=== PATIENT | female | born 1985 | race Caucasian/White ===

== ENCOUNTER 2022-11-21 15:40 | Outpatient (CLI) | payer BC, SELFPAY | END 2022-11-21 15:41 | disposition home or self-care (01) | LOC: NFLDREF 11-22 09:39 | PROVIDERS: PCP Family Medicine; Referring Provider Family Medicine; Visit Provider Family Medicine | DX: E03.9 Hypothyroidism, unspecified (principal); F41.1 Generalized anxiety disorder; F33.42 Major depressive disorder, recurrent, in full remission | CPT/HCPCS: 84439; 84443 ==

== ENCOUNTER 2023-03-27 11:39 | Outpatient (CLI) | payer BC, SELFPAY | END 2023-03-27 11:40 | disposition home or self-care (01) | LOC: NFLDREF 04-03 11:40 | PROVIDERS: PCP Family Medicine; Referring Provider Family Medicine; Visit Provider Family Medicine | DX: E03.9 Hypothyroidism, unspecified (principal) | CPT/HCPCS: 84439; 84443 ==

== ENCOUNTER 2023-11-10 10:40 | Outpatient (CLI) | payer BC, SELFPAY ==
--- OUTSIDE RECORDS SUMMARY | 2023-11-13 06:08 | XMS_ITS | Clinical Summary ---
Author Organization [facility] Address [place], [place] [address] Care Team Providers Care Head Start Assistant Teacher Name Role Phone Reta Pickett Primary Care Provider Allergies No known active allergies Medications Medication Sig Dispensed Refills Start Date End Date Status Butalbital-Acetaminop hen-Caff (FIORICET) 50-300-40 mg capIndications:Other migraine with status migrainosus, not intractable Take by mouth 3 times daily if needed. 30 capsule 2 05/15/2020 Active ALPRAZolam (XANAX) 0.5 mg tabletIndications:Anx iety Take 1 tablet by mouth 2 times daily if needed. 30 tablet 05/15/2020 Active sertraline (ZOLOFT) 100 mg tabletIndications:Anx iety,Depression, major, single episode, moderate (HC) Take 1 tablet by mouth once daily. 90 tablet 4 05/15/2020 Active Active Problems No known active problems Family History Medical History Relation Name Comments Hyperlipidemia Father Hypertension Father Arthritis Mother Hypertension Mother Relation Name Status Comments Father Mother Social History Tobacco Use Types Packs/Day Years Used Date Smoking Tobacco: Never Smokeless Tobacco: Never Tobacco Cessation:Counseling Given: Yes Alcohol Use Standard Drinks/Week Comments Yes 0 (1 standard drink = 0.6 oz pur e alcohol) PHQ-2 Answer Date Recorded PHQ-2 TOTAL SCORE 3 05/15/2020 Social Connections Answer Date Recorded Frequency of Communication with Friends and Fami ly Not on file 05/11/2021 Financial Resource Strain Answer Date R ecorded Difficulty of Paying Living Expenses Not on file 05/11/2021 Difficulty of Paying Living Expenses Not on file 05/11/2021 Sex and Gender Information Value Date Recorded Sex Assigned at Not on file Gender Identity Not on file Sexual Orientation Not on file Obstetrics History Last Filed Vital Signs Vital Sign Reading Time Taken Comments Blood Pressure 106/74 01/24/2020 1:56 PM CDT Pulse 65 01/24/2020 1:56 PM CDT Temperature 37.1 ??C (98.7 ??F) 01/24/2020 1:56 PM CD T Respiratory Rate - - Oxygen Saturation 99% 01/24/2020 1:56 PM CDT Inhaled Oxygen Concentration - - Weight 90.7 kg (200 lb) 01/24/2020 1:56 PM CDT Height - - Body Mass Index - - Plan of Treatment Health Maintenance Due Date Last Done Comments Tdap 1998 HIV for age 15-65 2002 BMI (ht and wt on same day) for age 18+ 2005 Hepatitis C screening for ag e 18-79 2005 Tetanus booster 2007 Depression screening for age 12+ 05/15/2021 05/15/2020, 05/15/2020 COVID-19 vaccine series ( - 2022-24 season) 2023 Pap test for age 21-65 09/19/2023 , 09/18/2020 Influenza for age 9-49 01/10/2024 Pneumococcal series for age 6-64 Aged Out No longer eligible b ased on patient's age to complete this topic Procedures Procedure Name Priority Date/Time Associated Diagnosis Comments LINER CHECKER THIN PREP PAP SCREEN IMAGED Routine 09/18/2020 1:45 PM CDT from Last 3 Months or Most Recently Relevant to Health Maintenance Results * LINER CHECKER THIN PREP PAP SCREEN IMAGED (09/18/2020 1:45 PM CDT) Case Report Gynecologic Cytology Report ? Case: [id number] ? Authorizing Provider: ??Ana Marcos PA-C ?Collected: ? 09/18/2020 1345 ? Ordering Location: ? [facility] ?Received: ?09/20/2020 1029 ? First Screen: ?Deneen Escobar ? Specimen: ?LINER CHECKER ThinPrep Vial Screening, Cervical/Vaginal ? 10/01/2020 12:47 PM CDT [facility] INTERPRETATION/ RESULT NEGATIVE FOR INTRAEPITHELIAL LESION OR MALIGNANCY (NIL) (none) 10/01/2020 12:47 PM T [facility] IMEN ADEQUACY Satisfactory for evaluation No endocervical component seen in a patient 10/01/2020 12:47 PM CDT [facility] HPV REQUEST HPV and PAP 10/01/2020 12:47 PM CDT [facility] Menstrual Status 10/01/2020 12:47 PM CDT [facility] Additional Information 10/01/2020 12:47 PM T [facility] Comment: Interpreted at [facility], Central Laboratory - [address], [place] [address] Automated Review Successful 10/01/2020 12:47 PM CDT [facility] Comment:Specimen processed s uccessfully by automated front tender device, ThinPrep Imaging System, [employer] ANCILLARY TESTING LINER CHECKER HPV Ordered, Please see separate report 10/01/2020 12:47 PM CDT [facility] Note The pap test is a screening technique, not a diagnostic procedure. It is used primarily to screen for squamous cancers and precursor lesions. Published studies have shown that it is subject to both false negative and false positive results. The pap test should not be used as the sole means to diagnose or exclude pre-malignant and malignant lesions. 10/01/2020 12:47 PM CDT [facility] Other (Cervical/Vagina l) 09/18/2020 1:45 PM CDT 09/20/2020 10:29 AM CDT August Priti [facility] PATHOLOG[facility] [address] [place] [address], from Last 3 Months or Most Recently Relevant to Health Maintenance Care Teams Head Start Assistant Teacher Relationship Specialty Start Date End Date Reta Pickett PA [address] [place] [address] PCP - General Physician Missile Control Pilot 01/27/20
== END 2023-11-10 10:41 | disposition home or self-care (01) ==
LOC: NFLDREF 11-13 06:07
PROVIDERS: PCP Family Medicine; Referring Provider Family Medicine; Visit Provider Family Medicine
DX: E03.9 Hypothyroidism, unspecified (principal)
CPT/HCPCS: 84439; 84443

== ENCOUNTER 2024-02-16 13:10 | Outpatient (CLI) | payer BC, SELFPAY ==
--- OUTSIDE RECORDS SUMMARY | 2024-02-19 11:35 | XMS_ITS | Clinical Summary ---
Author Organization [facility] Address [place], [place] [address] Care Team Providers Care Refuse Driver Name Role Phone Reta Pickett Primary Care [...] screening for age 12+ 05/15/2021 05/15/2020, 05/15/2020 Pap test for age 21-65 09/19/2023 , 09/18/2020 COVID-19 vaccine series ( season) 2024 Influenza for age 9-49 01/10/2024 Pneumococcal series for age 6-64 Aged Out No longer eligible b ased on patient's age to complete this topic Procedures Procedure Name Priority Date/Time Associated Diagnosis Comments RESIDENTIAL YOUTH COUNSELOR THIN PREP PAP SCREEN IMAGED Routine 09/18/2020 1:45 PM CDT from Last 3 Months or Most Recently Relevant to Health Maintenance Results * RESIDENTIAL YOUTH COUNSELOR THIN PREP PAP SCREEN IMAGED (09/18/2020 1:45 PM CDT) Case Report Gynecologic Cytology Report ? Case: [id number] ? Authorizing Provider: ??Ana Marcos PA-C ?Collected: ? 09/18/2020 1345 ? Ordering Location: ? [facility] ?Received: ?09/20/2020 1029 ? First Screen: ?Deneen Escobar ? Specimen: ?RESIDENTIAL YOUTH COUNSELOR ThinPrep Vial Screening, Cervical/Vaginal ? 10/01/2020 12:47 PM CDT [facility] INTERPRETATION/ RESULT NEGATIVE FOR INTRAEPITHELIAL LESION OR MALIGNANCY (NIL) (none) 10/01/2020 12:47 PM T [facility] IMEN ADEQUACY Satisfactory for evaluation No endocervical component seen in a patient 10/01/2020 12:47 PM CDT [facility] HPV REQUEST HPV and PAP 10/01/2020 12:47 PM CDT [facility] Menstrual Status 10/01/2020 12:47 PM CDT [facility] Additional Information 10/01/2020 12:47 PM T [facility] Comment: Interpreted at [facility] Laboratory - [address], [place] [address] Automated Review Successful 10/01/2020 12:47 PM CDT [facility] Comment:Specimen processed s uccessfully by automated broadcast systems engineer device, ThinPrep Imaging System, [employer] ANCILLARY TESTING RESIDENTIAL YOUTH COUNSELOR HPV Ordered, Please see separate report 10/01/2020 [...] and malignant lesions. 10/01/2020 12:47 PM CDT [facility]-C ENTRAL LABORATORY Other (Cervical/Vagina l) 09/18/2020 1:45 PM CDT 09/20/2020 10:29 AM CDT August Priti [facility] [address] [place] [address], from Last 3 Months or Most Recently Relevant to Health Maintenance Care Teams Refuse Driver Relationship Specialty Start Date End Date Reta Pickett PA [address] [place] [address] PCP - General Physician Engraver Optical Frames 01/27/20
== END 2024-02-16 13:11 | disposition home or self-care (01) ==
LOC: NFLDREF 02-19 11:19
PROVIDERS: PCP Family Medicine; Referring Provider Family Medicine; Visit Provider Family Medicine
DX: E03.9 Hypothyroidism, unspecified (principal)
CPT/HCPCS: 84443

== ENCOUNTER 2025-01-31 13:45 | Outpatient (RCR) | payer OTHER, SELFPAY | END 2025-03-13 16:43 | disposition home or self-care (01) | PROVIDERS: PCP Family Medicine; Visit Provider Family Medicine | DX: M54.2 Cervicalgia (principal); M54.12 Radiculopathy, cervical region; Z51.89 Encounter for other specified aftercare | CPT/HCPCS: 97110; 97140; 97162 ==

== ENCOUNTER 2025-02-03 14:42 | Outpatient (CLI) | payer BC, SELFPAY | END 2025-02-03 14:43 | disposition home or self-care (01) | LOC: NFLDREF 02-06 09:24 | PROVIDERS: PCP Family Medicine; Referring Provider Family Medicine; Visit Provider Internal Medicine | DX: E78.5 Hyperlipidemia, unspecified (principal); E03.9 Hypothyroidism, unspecified; R53.83 Other fatigue; R73.09 Other abnormal glucose | CPT/HCPCS: 80053; 80061; 84439; 84443 ==

== ENCOUNTER 2025-03-29 07:55 | Day surgery (SDC) | payer BC, SELFPAY ==
[2025-03-29] VITALS (15 sets, daily range): BP systolic 108–134; BP diastolic 62–89; PULSE 68–85; RESP 16–20; TEMP 36.1–37.1; O2SAT 92–98; BMI 38.2
[2025-03-29 08:12] LABS: Ur HCG Qualitative* Negative (Negative)
[2025-03-29] MEDS: SODIUM CHLORIDE 0.9 % (FLUSH) 10 ML SYRINGE IVF (08:25)
[2025-03-29] MEDS: LACTATED RINGERS 1000 ML 1,000 ML 100 ML IV ×2 (08:25→12:00)
[2025-03-29 08:32] LABS: Hemoglobin* 14.3 gm/dL (12.0-16.0)
--- NOTE | 2025-03-29 08:34 | W.PM.H&PU ---
History & Physical Update History & Physical Update H&P Reviewed and patient assessed: No changes noted
--- NOTE | 2025-03-29 09:28 | P.ANES_ITS ---
Anesthesia Charges Start Date/Time Anesthesia Start Date: 03/29/25 Anesthesia Start Time: 09:05 Stop Date/Time Anesthesia Stop Date: 03/29/25 Anesthesia Stop Time: 10:52 Coding CPT Codes CPT Codes: ANESTH SURG LOWER ABDOMEN - 61279 ([id number]) P2 - PATIENT W/MILD SYST DISEASE, QK - COMPOSER TEACHING ARTIST 2-4 CNCRNT ANES PROC, QX - SULFATE DRIER MACHINE OPERATOR SVC W/ MD MED DIRECTION
--- NOTE | 2025-03-29 09:28 | W.ANESCHARGE ---
Anesthesia Charges Start Date/Time Anesthesia Start Date: 03/29/25 Anesthesia Start Time: 09:05 Stop Date/Time Anesthesia Stop Date: 03/29/25 Anesthesia Stop Time: 10:52 Coding CPT Codes CPT Codes: ANESTH SURG LOWER ABDOMEN - 50634 ([id number]) P2 - PATIENT W/MILD SYST DISEASE, QK - STEAM TENDER 2-4 CNCRNT ANES PROC, QX - FIRE BOAT ENGINEER SVC W/ MD MED DIRECTION
[2025-03-29] MEDS: BUPIVACAINE 0.5% 30 ML INJECTION (10:24)
[2025-03-29] MEDS: LIDOCAINE 1 % PF 30 ML INJECTION (10:24)
--- NOTE | 2025-03-29 10:33 | SUR.OPER ---
DEFICIT = 110ML
--- NOTE | 2025-03-29 10:36 | P.GYNPRC_ITS ---
Procedure Note Date of procedure: 03/29/25 Will [facility] bill your pro fee for this procedure?: Yes Pre-op diagnosis: Family Planning History of heavy bleeding with menses, IUD expulsion twice Post-op diagnosis: Same Suspected endometriosis Procedure: Laparoscopic bilateral salpingectomy, excision and fulguration of suspected endometriosis implants, Mirena IUD removal, hysteroscopy and D&C, endometrial ablation Anesthesia: GETA Complications: None Surgeon: Irwin Patel MD Estimated blood loss (mL): 10 IV fluids (mL): 900 Urine Output (mL): 400 Pathology: specimen obtained, sent to pathology (1. Bilateral fallopian tubes 2. Right uterosacral ligament biopsy 3. endometrial curettings) Condition: stable Disposition: same day Findings: Findings: Speculum exam: Cervix without any abnormal discharge or lesions, IUD strings easily visualized. Uterine sound 8cm. Cervical length 3.5cm. Evidence of perianal skin tag, external hemorrhoids. Intra-abdominal survey: No gross abnormalities, uterus midline of about 8 cm, grossly normal left fallopian tube, right fallopian tube with a small paratubal cyst at fimbrial end. Bilateral ovaries with small simple ovarian cystic structures, largest 1cm, none suspicious for endometriomas. Right uterosacral ligament there is a powder gun lesion typical of endometriosis, clear vesicles on the right pelvic side wall peritoneum, powder gun lesion on the left uterosacral ligament as well as in the posterior cul de sac.Thin adhesions of the sigmoid epiploica to the left pelvic side wall. Intrauterine: grossly normal, thin endometrium. Bilateral cornual openings seen. Procedure Description: Patient was taken to the OR with IV fluid running and pneumatic compression stockings applied to the lower extremities. General anesthesia was obtained without difficulty. The patient was placed in the dorsal lithotomy position with Killian type stirrups with knee bent at 30 degree angles. Patient was prepared and draped under usual sterile technique. The bladder was emptied and Zamarripa catheter placed. Speculum was placed in the vagina. IUD strings were grasped with ring forceps and with gentle traction device was completely removed from uterus. The anterior lip of the cervix was grasped with a single-tooth tenaculum. Uterine manipulator was introduced. I then changed my gloves and attention was placed to the abdomen. Two Allis clamps were applied to the periumbilical skin for manual elevation of the abdomen. A vertical skin incision was made in the inferior umbilical fold. A 5 mm Optiview trocar was introduced into the peritoneal cavity without difficulty. Direct visualization confirmed intraperitoneal placement. Pneumoperitoneum was established with CO2 gas to a pressure of 15mmHg. Findings as above. An intra-abdominal survey revealed normal-appearing liver, gallbladder, spleen, and lack of any visceral or vascular injury. The Trendelenburg position was obtained to facilitate pelvic exposure. Two 5 mm trocars were then inserted under direct laparoscopic visualization. One in the left lower abdominal quadrant and a second at the level of the umbilicus, at about 5-6cm in distance towards the left side. The left fallopian tube was elevated away from the pelvic sidewall with an atraumatic grasper. Utilizing LigaSure bipolar energy device the mesosalpinx was serially coagulated and cut until cornual region. Hemostasis was achieved. Left fallopian tube was easily removed via 5 mm trocar. Same procedure performed on right fallopian tube. Hemostasis secured. Both fallopian tubes sent to pathology. Abdomen and pelvis were thoroughly inspected and high suspicion for endometriosis implants noted, decision made to acquire a biopsy to make a diagnosis and the rest of the noted implants were coagulated with monopolar energy making sure that there was adequate distance from cauterization site and right sided ureter- which had been identified to be in the usual anatomical site. Again, pelvis and biopsy site thoroughly inspected and hemostasis secured. The pneumoperitoneum was released, decision was made to leave ports in place to be available if a second look laparoscopic was needed. Attention was then again placed vaginally. A bivalved speculum was inserted in the posterior aspect of the vagina. A single-tooth tenaculum was used to grasp the anterior lip of the cervix. The uterus was carefully sounded to 8 cm. The cervical os was sequentially dilated to accommodate the 5 mm TrueClear hysteroscope using Hegar dilators. A 5 mm 30 degree TrueClear hysteroscope was introduced under direct visualization, and the uterus was distended with normal saline. Findings as above. Soft tissue incisor blade from TrueClear hysteroscope system was introduced under direct visualization and endometrial curettings completed. Hysteroscope removed under direct visualization. Endometrial ablation was then completed. Cayla opened and array length was set up to 4.5 cm, the device was inserted up until the fundus, the device was deployed and cervical sealing balloon was inflated, uterine integrity tests were performed and passed, endometrial ablation was performed successfully. The cervical sealing balloon was deflated, device was removed from uterus and second look hysteroscopy was performed with findings of an adequate burning of intrauterine cavity tissues. Tenaculum was removed from the cervix and good hemostasis was noted at puncture sites. Zamarripa catheter was removed. Attention was again placed to the abdomen, trocars removed. Skin incisions were closed with 4-0 Monocryl sutures in a subcuticular fashion. The patient was taken to the recovery room in a stable condition. Patient will be discharged from recovery after all the criteria are met for discharge. She was given instructions regarding follow-up visit in 2 weeks at [facility]. Postop pain management, lifting restrictions, intercourse restrictions were discussed with patient before surgery and all questions were answered. Fluid deficit: 110mL
--- NOTE | 2025-03-29 10:53 | P.ANES_ITS ---
Anesthesia Charges Start Date/Time Anesthesia Start Date: 03/29/25 Anesthesia Start Time: 09:05 Stop Date/Time Anesthesia Stop Date: 03/29/25 Anesthesia Stop Time: 10:52 Coding CPT Codes CPT Codes: ANESTH SURG LOWER ABDOMEN - 63611 ([id number]) P2 - PATIENT W/MILD SYST DISEASE, QK - HOT DIP TINNING SUPERVISOR 2-4 CNCRNT ANES PROC, QX - HOME APPLIANCE WASHING MACHINE MECHANIC SVC W/ MD MED DIRECTION
--- NOTE | 2025-03-29 10:53 | W.ANESCHARGE ---
Anesthesia Charges Start Date/Time Anesthesia Start Date: 03/29/25 Anesthesia Start Time: 09:05 Stop Date/Time Anesthesia Stop Date: 03/29/25 Anesthesia Stop Time: 10:52 Coding CPT Codes CPT Codes: ANESTH SURG LOWER ABDOMEN - 22957 ([id number]) P2 - PATIENT W/MILD SYST DISEASE, QK - FINANCE TEACHER 2-4 CNCRNT ANES PROC, QX - CELLAR HAND SVC W/ MD MED DIRECTION
[2025-03-29] MEDS: ONDANSETRON 2 MG/ML inj 4 MG IVP (11:40)
== END 2025-03-29 13:10 | disposition home or self-care (01) ==
LOC: OR 07:56
PROVIDERS: PCP Internal Medicine; Visit Provider Obstetrics & Gynecology
PROC: (CPT 58661; principal; 2025-03-29 09:15)
PROC: 0UF98ZZ Fragmentation in Uterus, Via Natural or Artificial Opening Endoscopic (ICD-10-PCS; CPT 58661; 2025-03-29 09:15)
DX: N92.0 Excessive and frequent menstruation with regular cycle (principal); Z30.2 Encounter for sterilization; N80.3C1 Endometriosis of the right uterosacral ligament, unspecified depth
CPT/HCPCS: 58661; 58662; 58563; 58301; 00840; 36415; 81025; 85018; A9270; C1782; J0665; J1171; J1885; J2003; J2250; J2405; J2704; J2710; J3010; J7120